=== PATIENT | female | born 1960 | race Caucasian/White ===

== ENCOUNTER 2017-06-03 12:10 | Emergency (ER) | payer SELFPAY ==
[2017-06-03 12:15] VITALS: BP 146/95; PULSE 80; TEMP 98.9; BMI 29.5
--- NOTE | 2017-06-03 13:00 | PDOC ---
History of Present Illness - General Chief Complaint: Cold Symptoms Stated Complaint: FEVER Time Seen by Provider: 06/03/17 12:46 History Source: Patient Exam Limitations: No Limitations - History of Present Illness Initial Comments: CHIEF COMPLAINT: 56 y/o afebrile female c/o flu like symptoms since yesterday. HISTORY OF PRESENT ILLNESS: She took motrin for her fever at 2am. Patient denies earache, n/v/d, CP, SOB, abd pain, hematuria, dysuria. Vital signs on arrival are within normal limits. REVIEW OF SYSTEMS: GENERAL/CONSTITUTIONAL: +fever and body aches HEAD, EYES, EARS, NOSE AND THROAT: No ear pain or discharge. +sore throat. CARDIOVASCULAR: No chest pain or shortness of breath. RESPIRATORY: +dry cough. No wheezing or hemoptysis. GASTROINTESTINAL: No nausea, vomiting, diarrhea. GENITOURINARY: No dysuria, frequency, or change in urination. MUSCULOSKELETAL: No joint or muscle swelling or pain. No neck or back pain. SKIN: No rash or easy bruising. NEUROLOGIC: No headache, vertigo, loss of consciousness, or loss of sensation. PHYSICAL EXAM: GENERAL: The patient is awake, alert, and fully oriented, in no acute distress. She is well appearing. No cough in ER. HEAD: Normal with no signs of trauma. NECK: No cervical lymphadenopathy. ENT: Pupils equal, round and reactive to light, extraocular movements intact, sclera anicteric, conjunctiva clear. No tonsilar erythema, edema or exudate. LUNGS: Clear to auscultation bilaterally. Normal excursion. No respiratory distress or use of accessory muscles. CV: RRR, S1/S2, no MRG. Cap refill < 2 sec. ABDOMEN: Soft, non-distended, non-tender even to deep palpation, no hepatomegaly or splenomegaly, no masses. BACK: Pain reproduced with palpation of thoracic paravertebral muscles b/l. EXTREMITIES: Normal range of motion, no edema. NEUROLOGICAL: Normal speech, normal gait. CN II-XII grossly intact. SKIN: Warm, dry, normal turgor, no rashes or lesions noted. Past History - Past Medical History Allergies/Adverse Reactions: Allergies Allergy/AdvReac Type Severity Reaction Status Date / Time No Known Allergies Allergy Verified 06/03/17 12:11 Home Medications: Ambulatory Orders Acetaminophen [Tylenol] 650 mg PO Q4H #30 tablet 06/03/17 Benzonatate [Tessalon Pearls -] 100 mg PO TID #21 capsule 06/03/17 COPD: No - Suicide/Smoking/Psychosocial Hx Smoking History: Never smoked Have you smoked in the past 12 months: No Information on smoking cessation initiated: No Hx Alcohol Use: No Drug/Substance Use Hx: No Substance Use Type: None *Physical Exam - Vital Signs Last Vital Signs Temp Pulse Resp BP Pulse Ox 98.9 F 80 18 146/95 100 06/03/17 12:13 06/03/17 12:13 06/03/17 12:13 06/03/17 12:13 06/03/17 12:13 Medical Decision Making - Medical Decision Making A/p: 56 y/o afebrile female with viral illness. Plan is as follows: 1. IM toradol Will d/c to home with supportive care instructions. Instructed patient to return to the ER with any worsening or concerning symptoms. The patient verbalizes understanding of all instructions, has no further questions and is awaiting discharge. *DC/Admit/Observation/Transfer Diagnosis at time of Disposition: Viral syndrome - Discharge Dispostion Disposition: HOME Condition at time of disposition: Good - Referrals - Patient Instructions Printed Discharge Instructions: DI for Viral Syndrome Additional Instructions: Discharge Instructions: -A prescription for fever and cough medicine has been sent to your pharmacy -Please drink plenty of liquids and get lots of rest -Follow up with your doctor in 1 week -Return to the ER with any worsening or concerning symptoms Instrucciones de descarga: -Se malave enviado a gardiner farmacia iglesia receta para la fiebre y la medicina para la tos -Por favor, tome muchos lquidos y descanse mucho -Siga con gardiner doctor en 1 semana -Volver a la nelly de urgencias con cualquier empeoramiento o sntomas Print Language: ITALIAN - Post Discharge Activity
[2017-06-03] MEDS ORDERED: KETOROLAC TROMETHAMINE 60 MG/2 ML VIAL IM ONE (13:01)
[2017-06-03] MEDS ORDERED: KETOROLAC TROMETHAMINE 60 MG/2 ML VIAL ONE (13:07)
== END 2017-06-03 13:21 | disposition home or self-care (01) ==
LOC: JERFT 12:10
PROC: 3E0233Z Introduction of Anti-inflammatory into Muscle, Percutaneous Approach (ICD-10-PCS; principal; 2017-06-03)
DX: B34.9 Viral infection, unspecified (principal)
CPT/HCPCS: 99281-25